=== PATIENT | female | born 1965 | race American Indian/Alaskan Native ===

== ENCOUNTER 2022-01-09 12:00 | Outpatient (CLI) | payer OTHER ==
--- NOTE | 2022-01-09 14:30 | XRay Report ---
BILATERAL SHOULDERS 6 VIEWS INDICATION / CLINICAL INFORMATION: BILATERAL SHOULDER PAIN COMPARISON: None available. FINDINGS: BONES and JOINT(S): No acute fracture or subluxation. There is moderate left and mild right glenohume ral joint space loss. No other significant degenerative changes. Calcifications are seen along the ex pected course of the right supraspinatus tendon. SOFT TISSUES: No significant abnormality. ADDITIONAL FINDINGS: None. 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 Signer Name: Ajit Contreras MD Signed: 01/09/2022 2:25 PM Workstation Name: [email or web address]
--- NOTE | 2022-01-09 14:30 | XRay Report ---
BILATERAL HIPS 3 VIEWS INDICATION / CLINICAL INFORMATION: BILATERAL HIP PAIN COMPARISON: None available. FINDINGS: BONES and JOINT(S): No acute fracture or subluxation. There is mild osteoarthritis of the hips. No ot her significant degenerative changes. SOFT TISSUES: No significant abnormality. ADDITIONAL FINDINGS: None. IMPRESSION: Mild osteoarthritis of the hips. Signer Name: Ajit Contreras MD Signed: 01/09/2022 2:26 PM Workstation Name: [email or web address]
== END 2022-01-09 12:01 | disposition home or self-care (01) ==
LOC: XRAY 12:00
PROVIDERS: ATTEND Internal Medicine
DX: M16.0 Bilateral primary osteoarthritis of hip (principal); M19.012 Primary osteoarthritis, left shoulder; M19.011 Primary osteoarthritis, right shoulder
CPT/HCPCS: 73521

== ENCOUNTER 2022-04-17 11:22 | Outpatient (CLI) | payer OTHER ==
--- NOTE | 2022-04-17 12:52 | XRay Report ---
Knees bilateral 4 views INDICATION: Bilateral knee pain IMPRESSION: No fracture or subluxation of either knee is identified. There is no significant degenera tive changes. Signer Name: Jose Rangel MD Signed: 04/17/2022 12:47 PM Workstation Name: [email or web address]
--- NOTE | 2022-04-17 12:53 | XRay Report ---
Lumbar spine 3 views INDICATION: Low back pain IMPRESSION: There is moderate bilateral neural foraminal stenosis at L5-S1 secondary to discogenic an d facet arthropathy. Signer Name: Jose Rangel MD Signed: 04/17/2022 12:48 PM Workstation Name: [email or web address]
== END 2022-04-17 11:23 | disposition home or self-care (01) ==
LOC: XRAY 11:22
PROVIDERS: ATTEND Internal Medicine
DX: M48.07 Spinal stenosis, lumbosacral region (principal); M47.817 Spondylosis without myelopathy or radiculopathy, lumbosacral region; M25.562 Pain in left knee; M25.561 Pain in right knee
CPT/HCPCS: 72100